=== PATIENT | female | born 1975 | race Caucasian/White ===

== ENCOUNTER 2018-04-28 07:45 | Day surgery (SDC) | payer OTHER ==
[~2018-04-28 07:45] MED LIST: TOPROL XL25 M1 PO
[2018-04-28] MEDS ORDERED: CODE1TAB37 PO (11:55)
[2018-04-28] MEDS ORDERED: DOXYCYCLINE HY100 MG PO (11:55)
== END 2018-04-28 15:50 | disposition home or self-care (01) ==
LOC: CIR.AMB 07:45
DX: N84.0 Polyp of corpus uteri (principal)

== ENCOUNTER 2024-06-01 05:30 | Inpatient (IN) | payer OTHER ==
[2024-05-25 08:29] LABS: HEMATOCRIT 38.4 % (36.0-45.00); HEMOGLOBIN 12.7 g/dL (12.0-15.00); MEAN CELL VOLUME 79.8 fL (80.00-100.00); MEAN CORPUSCULAR HEMOGLOBIN 26.4 pg (27.00-32.0); MEAN CORPUSCULAR HGB CONC 33.1 g/dl (32.0-36.0); PLATELET COUNT 310 K/uL (150-450); RED BLOOD COUNT 4.81 M/uL (4.00-6.00); RED CELL DISTRIBUTION WIDTH 17.1 % (11.5-14.5); URINE APPEARANCE Cloudy; URINE BILIRRUBIN Negative (NEGATIVE); URINE BLOOD Negative; URINE COLOR Dark Yellow; URINE GLUCOSE Negative (NEGATIVE); URINE KETONE Trace (NEGATIVE); URINE LEUKOCYTE Small; URINE NITRATE Negative; URINE PROTEIN Trace (NEGATIVE)
[2024-05-25 08:33] LABS: URINE BACTERIA 5756.7 uL (0.0-1933); URINE EPITHELIAL CELLS 64.1 uL (0.0-38.8); URINE RBC 52.8 uL (0.0-20.8); URINE WBC 133.8 uL (0.0-23.2)
[2024-05-25 08:50] LABS: INR 0.97; PARTIAL THROMBOPLASTIN TIME 28.5 SECONDS (22.0-34.0); PROTHROMBIN TIME 10.2 SECONDS (9.0-11.5)
[2024-05-25 09:31] LABS: ALBUMIN 3.7 gm/dL (3.4-5.0); BILIRUBIN TOTAL 0.56 mg/dL (0.3-1.2); CALCIUM 9.6 mg/dL (8.5-10.1); CREATININE SERUM 0.75 mg/dL (0.55-1.02); GFR 81.79; GLOBULINA 3.8 G/DL (2.4-3.5); POTASSIUM 4.72 mEq/L (3.5-5.1); TOTAL PROTEIN 7.5 gm/dL (6.4-8.2); TSH 1.53 uIU/mL (0.358-3.74)
[~2024-06-01] VITALS: Ht 160 cm; Wt 102.1 kg
[~2024-06-01 05:30] MED LIST changes: +CHILDREN'S ASPI81 MG PO; +CODE1TAB37 PO; +COZAAR100 MG PO; +DOXYCYCLINE HY100 MG PO
[2024-06-01] MEDS ORDERED: POVIDONE-IODINE 118 ML BOTT TOP ONE (07:34)
[2024-06-01] MEDS ORDERED: CEFOXITIN SODIUM 2,000 MG VIAL IV ONE (07:35)
[2024-06-01] MEDS ORDERED: CHLORHEXIDINE GLUCONATE 120 ML BOTTLE TOP ONE (07:35)
[2024-06-01] MEDS ORDERED: RINGERS SOLUTION,LACTATED 1,000 ML IV SCH (10:30)
[2024-06-01] MEDS ORDERED: SIMETHICONE 125 MG CAPSULE PO SCH (10:30)
[2024-06-01] MEDS ORDERED: SUGAMMADEX SODIUM 200 MG/2 ML VIAL IV ONE (10:34)
[2024-06-01] MEDS ORDERED: MEPERIDINE HCL/PF 50 MG/ML VIAL IV SCH (12:00)
[2024-06-01] MEDS ORDERED: PROMETHAZINE HCL 50 MG/ML AMPUL IV SCH (12:00)
[2024-06-01] MEDS ORDERED: ENALAPRILAT DIHYDRATE 1.25 MG/ML VIAL IV PRN (12:15)
[2024-06-01] MEDS ORDERED: ACETAMINOPHEN 500 MG GEL..CAP PO PRN (12:15)
[2024-06-01 15:35] LABS: HEMATOCRIT 35.3 % (36.0-45.00); HEMOGLOBIN 11.5 g/dL (12.0-15.00); MEAN CELL VOLUME 80.1 fL (80.00-100.00); MEAN CORPUSCULAR HEMOGLOBIN 26.1 pg (27.00-32.0); MEAN CORPUSCULAR HGB CONC 32.6 g/dl (32.0-36.0); PLATELET COUNT 322 K/uL (150-450); RED CELL DISTRIBUTION WIDTH 16.7 % (11.5-14.5)
[2024-06-01] MEDS ORDERED: SIMETHICONE 125 MG CAPSULE PO ONE (16:33)
[2024-06-01] MEDS ORDERED: FAMOTIDINE/PF 20 MG in 0.9 % SODIUM CHLORIDE 8 ML IV PUSH SCH (21:00)
[2024-06-02] MEDS ORDERED: NAPR500T14 PO (08:36)
[2024-06-02] MEDS ORDERED: Tylenol #3 PO (08:36)
[2024-06-02] MEDS ORDERED: ACETAMINOPHEN WITH CODEINE 1 UDTAB TABLET PO ONE (09:00)
[2024-06-02] MEDS ORDERED: LOSARTAN POTASSIUM 100 MG TABLET PO SCH (09:00)
== END 2024-06-02 11:41 | disposition home or self-care (01) | DRG 743 ==
LOC: CIR.AMB 05:30 → OB/GYN 11:34
PROVIDERS: ADMIT Obstetrics & Gynecology; ATTEND Obstetrics & Gynecology
PROC: 0UT7FZZ Resection of Bilateral Fallopian Tubes, Via Natural or Artificial Opening With Percutaneous Endoscopic Assistance (ICD-10-PCS; 2024-06-01)
PROC: 0UT2FZZ Resection of Bilateral Ovaries, Via Natural or Artificial Opening With Percutaneous Endoscopic Assistance (ICD-10-PCS; 2024-06-01)
PROC: 0USG4ZZ Reposition Vagina, Percutaneous Endoscopic Approach (ICD-10-PCS; 2024-06-01)
PROC: 0JQC0ZZ Repair Pelvic Region Subcutaneous Tissue and Fascia, Open Approach (ICD-10-PCS; 2024-06-01)
PROC: 0TJB8ZZ Inspection of Bladder, Via Natural or Artificial Opening Endoscopic (ICD-10-PCS; 2024-06-01)
PROC: 0UT9FZZ Resection of Uterus, Via Natural or Artificial Opening With Percutaneous Endoscopic Assistance (ICD-10-PCS; principal; 2024-06-01 08:30)
DX: D25.0 Submucous leiomyoma of uterus (principal); N80.03 Adenomyosis of the uterus; N72 Inflammatory disease of cervix uteri; G89.18 Other acute postprocedural pain; I10 Essential (primary) hypertension; Z20.822 Contact with and (suspected) exposure to COVID-19